=== PATIENT | female | born 1995 | race Caucasian/White ===

== ENCOUNTER 2019-03-11 02:55 | Emergency (ER) | payer OTHER ==
[~2019-03-11] VITALS: Ht 157.5 cm; Wt 92.3 kg
[2019-03-11 03:06] VITALS: Ht 157.5 cm; Wt 92.3 kg
[2019-03-11 05:45] VITALS: BP 130/82
== END 2019-03-11 05:45 | disposition home or self-care (01) ==
LOC: ED 02:55
DX: J40 Bronchitis, not specified as acute or chronic (principal)
CPT/HCPCS: 87804; J7613; Q0092

== ENCOUNTER 2019-10-09 20:26 | Emergency (ER) | payer OTHER ==
[~2019-10-09] VITALS: Ht 157.5 cm; Wt 88.5 kg
[2019-10-09 20:40] VITALS: Ht 157.5 cm; Wt 88.5 kg
[2019-10-09 23:53] VITALS: BP 109/60
== END 2019-10-09 23:53 | disposition home or self-care (01) ==
LOC: ED 20:26
DX: G44.209 Tension-type headache, unspecified, not intractable (principal)
CPT/HCPCS: J1885